=== PATIENT | female | born 1990 | race Caucasian/White ===

== ENCOUNTER 2017-03-06 12:21 | Emergency (ER) | payer OTHER ==
[~2017-03-06] VITALS: Ht 152.4 cm; Wt 57.0 kg
[~2017-03-06 12:21] MED LIST: DIVA250T25 PO; DIVA500T35 PO; ESCI10TA PO; LEVO25TA4 PO; RISP2TAB4 PO; TRAZ-144 PO
[2017-03-06 12:30] VITALS: BP 145/87
[2017-03-06] MEDS ORDERED: METHOCARBAMOL 500 MG TABLET PO ONE (13:30)
[2017-03-06] MEDS ORDERED: KETOROLAC TROMETHAMINE 60 MG/2 ML VIAL IM ONE (13:30)
== END 2017-03-06 14:47 | disposition home or self-care (01) ==
LOC: EMS 12:22
DX: S29.012A Strain of muscle and tendon of back wall of thorax, initial encounter (principal); R03.0 Elevated blood-pressure reading, without diagnosis of hypertension; E03.9 Hypothyroidism, unspecified; E78.00 Pure hypercholesterolemia, unspecified; X58.XXXA Exposure to other specified factors, initial encounter; Y93.89 Activity, other specified; Y92.89 Other specified places as the place of occurrence of the external cause; Y99.8 Other external cause status
CPT/HCPCS: 96372; 99283; J1885